=== PATIENT | male | born 1955 | race Caucasian/White ===

== ENCOUNTER 2020-03-29 09:23 | Outpatient (CLI) | payer SELFPAY | END 2020-03-29 09:24 | disposition home or self-care (01) | PROVIDERS: PCP Internal Medicine; Visit Provider Internal Medicine | DX: Z71.3 Dietary counseling and surveillance (principal) | CPT/HCPCS: 99199 ==

== ENCOUNTER 2020-04-11 12:22 | Outpatient (CLI) | payer MEDICARE, SELFPAY ==
[2020-04-12 01:18] LABS: SARS-CoV-2 RNA PCR Negative
== END 2020-04-11 12:23 | disposition home or self-care (01) ==
LOC: CHSLAB 12:27
PROVIDERS: PCP Internal Medicine; Visit Provider Internal Medicine
DX: J06.9 Acute upper respiratory infection, unspecified (principal); Z20.828 Contact with and (suspected) exposure to other viral communicable diseases
CPT/HCPCS: 87635; C9803; U0003

== ENCOUNTER 2020-06-30 09:18 | Outpatient (CLI) | payer MEDICARE, MEDICAID, SELFPAY ==
--- NOTE | ~2020-06-30 | XR_ITS ---
EXAMINATION: XR UGIAC w barium swallow DATE: 06/30/2020 10:01 INDICATION: Patient with history of esophageal cancer status post gastric pull-through procedure pres ents with history of reflux and dry heaving in the morning TECHNIQUE: The patient drank thick barium, gas-producing crystals, and thin barium. Fluoroscopy of th e esophagus, stomach, and proximal small bowel were performed. Fluoroscopy exposure time was 2.1 miguel angel angela. The DAP for this procedure was 4.105 Gycm2. COMPARISON: None. FINDINGS: There are changes of partial esophagectomy and gastric pull-through procedure. There is a m oderate amount of spontaneous reflux of gastric contents into the distal esophagus. No stricture is i dentified. The stomach and proximal small bowel show normal folding patterns. IMPRESSION: 1. Changes of gastric pull-through procedure with moderate amount of spontaneous gastroesophageal ref lux. Reviewed, dictated and finalized at location A. T MAKER LOCKSTITCH IMPRESSION: 1. Changes of gastric pull-through procedure with moderate amount of spontaneou s gastroesophageal reflux.
== END 2020-06-30 09:19 | disposition home or self-care (01) ==
PROVIDERS: PCP Internal Medicine; Visit Provider Internal Medicine
DX: R10.13 Epigastric pain (principal); R11.0 Nausea; K21.9 Gastro-esophageal reflux disease without esophagitis
CPT/HCPCS: 74246

== ENCOUNTER 2020-07-29 11:17 | Emergency (ER) | payer MEDICARE, MEDICAID, SELFPAY ==
--- NOTE | ~2020-07-29 | CT_ITS ---
EXAMINATION: CTA chest PE protocol EXAM DATE: 07/29/2020 14:03 INDICATION: Shortness of breath, positive d-dimer. Cough. Lung and esophageal cancer. TECHNIQUE: Spiral CTA of the chest (pulmonary arteries) was performed with 100 cc Omnipaque 350 intr avenous contrast injection. Images were acquired during the pulmonary arterial phase. Coronal maxi mum intensity projection 3D-reconstructions were created by the technologist on dedicated workstation . Axial, coronal and sagittal reformatted images were reviewed. The dose-length product (DLP) for t his examination was 197.64 mGy-cm. The exposure was tailored according to patient size (auto mA exp osure control), and iterative reconstruction (ASIR) was used as additional dose reduction technique. Comparison is made to prior examination from 06/17/2017. FINDINGS: The central pulmonary arteries are dilated which can indicate elevated pulmonary arterial p ressure, pulmonary arterial hypertension. Pulmonary arteries are well opacified and without intralum inal filling defects. No thoracic aortic dissection. Interval development of loss of fat planes surrounding the mid and distal esophagus and the lucero, f rom infiltrative malignancy or edema. Difficult to identify discrete lymph nodes from this. There is occlusion of the left lower lobe bronchus, with these bronchi being nearly completely opacified. This appears to be low density, could be mucus plugging with resultant postobstructive atelectasis and pn eumonia, but given the mediastinal findings, malignancy could be contributing or causing this. Interval development of nodules of soft tissue in left epicardial fat, measuring up to 1.2 cm, probab ly metastatic disease. Small to moderate chronic left pleural effusion with diffuse pleural thickening. Right apical scarrin g is unchanged. Interval development of diffuse left apical scarring. There is paraseptal emphysema. Patient is cachectic. Left adrenal mass measuring 2.3 cm, unchanged and therefore likely benign. Chol ecystectomy clips and resultant biliary dilation. Narrow cardiac silhouette from the hyperinflated alejo ngs. Moderate pericardial effusion. There are no osteoblastic or osteolytic lesions identified. IMPRESSION: 1. Dilated pulmonary arteries without filling defects. 2. Completely occluded left lower lobe bronchus with atelectasis, superimposed infection and/or canc er. 3. Diffuse ill-defined mediastinal fat planes, and development of left epicardial soft tissue nodule s suspicious for metastatic disease. 4. Development of chronic small to moderate left pleural effusion. 5. Moderate pericardial effusion. Reviewed, dictated and finalized at location B. T TINTER IMPRESSION: 1. Dilated pulmonary arteries without filling defects. 2. Completely occluded left lower lobe bronchus with atelectasis, superimposed infection and/or cancer. 3. Diffuse ill-defined mediastinal fat planes, and development of left epicard ial soft tissue nodules suspicious for metastatic disease. 4. Development of chronic small to moderate left pleural effusion. 5. Moderate pericardial effusion.
--- NOTE | ~2020-07-29 | XR_ITS ---
EXAMINATION: XR chest 2V DATE: 07/29/2020 12:15 INDICATION: Shortness of breath and cough, history of lung and esophageal cancer TECHNIQUE: Frontal and lateral views of the chest are obtained COMPARISON: CT, 06/17/2017 FINDINGS: There are large left and small right pleural effusions. Changes of gastric pull-through are noted. There are airspace opacities of the lung apices. Patchy opacities are also seen in the mid an d lower lung zones. There is moderate thoracic spondylosis. There are partially imaged changes of ant erior fusion procedure in the cervical spine. Surgical clips in the right upper quadrant are likely f rom prior cholecystectomy. IMPRESSION: 1. Large left and small right pleural effusions. 2. Diffuse airspace opacities which could reflect pneumonia and/or pulmonary edema and/or atelectasis . Reviewed, dictated and finalized at location A. ION ATTENDANT IMPRESSION: 1. Large left and small right pleural effusions. 2. Diffuse airspace opacities which could reflect pneumonia and/or pulmonary ed vesna and/or atelectasis.
[2020-07-29 11:17] VITALS: BP 135/75; PULSE 100; RESP 20; TEMP 37.6; O2SAT 96
--- NOTE | 2020-07-29 11:46 | ECG_ITS ---
Measurements Intervals [place] Rate: 92 P: 87 CO: 158 QRS: 76 QRSD: 92 T: 84 QT: 373 QTc: 462 Interpretive Statements SINUS RHYTHM BORDERLINE R WAVE PROGRESSION, ANTERIOR LEADS BORDERLINE T WAVE ABNORMALITY- HIGH LATERAL LEADS BASELINE ARTIFACT- I, II, III, AVR, AVL,A VF BORDERLINE ECG Electronically Signed On 07-29-2020 12:58:20 FIRE INVESTIGATOR by Jerry Marroquin D.O.
--- NOTE | 2020-07-29 12:14 | PC.NURSE ---
PT TAKEN TO RADIOLOGY DEPARTMENT BY WHEELCHAIR AT THIS TIME.
[2020-07-29 12:40] LABS: Basophils Absolute Auto 0.03 K/mm3 (0.00-0.10); Basophils Percent Auto 0.4 % (0.0-1.0); Eosinophils Absolute Auto 0.02 K/mm3 (0.02-0.50); Eosinophils Percent Auto 0.3 % (1.0-6.0); Hematocrit 32.1 % (37.0-46.0); Hemoglobin 10.5 g/dL (12.4-15.3); Immature Granulocyte Absolute 0.02 K/mm3 (0.00-0.00); Immature Granulocyte Percent A 0.3 % (0.0-0.0); Lymphocytes Absolute Auto 0.52 K/mm3 (1.10-4.50); Lymphocytes Percent Auto 7.5 % (18.0-42.0); Mean Corpuscular HGB Conc 32.7 g/dL (32.0-36.0); Mean Corpuscular Hemoglobin 33.3 pg (27.0-31.0); Mean Corpuscular Volume 101.9 fL (78.0-102.0); Mean Platelet Volume 8.8 fl (8.7-11.0); Monocytes Percent Auto 11.5 % (2.0-11.0); Neutrophils Absolute Auto 5.5 K/mm3 (1.7-7.2); Platelet Count Result 215 K/mm3 (150-420); Red Blood Count 3.15 M/mm3 (4.70-6.10); Red Cell Distribution Width 10.7 % (11.6-14.4); White Blood Count 6.9 K/mm3 (4.8-10.8)
[2020-07-29 12:54] LABS: BNP 55.4 pg/mL (0-100)
[2020-07-29 12:58] LABS: D Dimer 0.76 mg/L (0.19-0.50)
[2020-07-29 13:00] LABS: Alanine Aminotransferase 23 U/L (16-63); Albumin Level 2.7 g/dL (3.4-5.0); Alkaline Phosphatase 132 U/L (46-116); Anion Gap 0 mmol/L (8-16); Aspartate Amino Transferase 23 U/L (15-37); Bilirubin,Total 0.9 mg/dL (0.00-1.00); Blood Urea Nitrogen 11 mg/dL (7-18); Calcium 8.8 mg/dL (8.5-10.1); Carbon Dioxide 40 mmol/L (21-32); Chloride 94 mmol/L (98-108); Estimated CRCL calculation 72 ml/min; Estimated Glomerular Filt Rate > 60; Glucose 78 mg/dL (70-99); Osmolality Calculated 276 mOsm/kg (285-295); Phosphorus 2.7 mg/dL (2.6-4.7); Potassium 2.9 mmol/L (3.5-5.1); Sodium 134 mmol/L (136-145); Total Protein 6.9 g/dL (6.4-8.2); Troponin I 12.2 ng/L (0.00-60.4)
--- NOTE | 2020-07-29 13:17 | PC.NURSE ---
RN ENTERED ROOM 3 TO INSERT IV ACCESS FOR CT WITH CONTRAST R/O PE DUE TO ELEVATED DDIMER VERBALLY ORDERED BY ERP DR. REDMOND. PT REFUSES IV ACCESS. RN ATTEMPTED TO EDUCATE PT ON WHAT THE IV IS NEEDED FOR. PT STATES HE CAME HERE FOR OXYGEN AND OXYGEN ONLY AND HE HAS A DOCTORS APPOINTMENT ON SATURDAY. RN EXPLAINED THAT THE PATIENTS PULSE OXIMETRY WAS 96% ON ROOM AIR, PT THEN STATES THAT IT DROPPED TO 86. RN EXPLAINED THAT THE EQUIPMENT WAS NOT PROPERLY ON HIS FINGER AT THAT TIME. RN STATES SHE WILL SEND ERP DOWN TO ROOM FOR EDUCATIONAL PURPOSES.
[2020-07-29] MEDS: POTASSIUM CHLORIDE 20 MEQ TABLET 40 MEQ PO (14:29)
[2020-07-29 14:58] VITALS: RESP 15; O2SAT 96
--- NOTE | 2020-07-30 04:19 | ED.SOB ---
HPI - SOB/Dyspnea General Chief Complaint: Shortness of Breath/Dyspnea Stated Complaint: SOB Time Seen by Provider: 07/29/20 11:25 Source: patient Mode of arrival: ambulatory Limitations: no limitations History of Present Illness HPI Narrative: Patient presents saying he is short of breath and wanting a prescription for oxygen at home. He states he has been short of breath for many days, but just now decided to seek attention for it. This has been moderately severe, ongoing, and precipitated by activity. Rest has made it better. MD elicited complaint: shortness of breath Pertinent past history: COPD Onset (ago): day(s) Severity: moderate Exacerbating factors: exertion Relieving factors: rest Known history of: COPD Associated symptoms: denies other symptoms Treatment prior to arrival: none Related Data Home Medications Medication Instructions Recorded Confirmed esomeprazole magnesium 40 mg 40 mg PO DAILY 07/26/20 07/29/20 capsule,delayed release fludrocortisone 0.1 mg tablet 0.1 mg PO DAILY 07/26/20 07/29/20 glimepiride 2 mg tablet 2 mg PO QAM 07/26/20 07/29/20 methadone 10 mg tablet 10 mg PO DAILY 07/26/20 07/29/20 Allergies Allergy/AdvReac Type Severity Reaction Status Date / Time clindamycin Allergy Unknown Verified 06/09/13 09:59 Penicillins Allergy Unknown Verified 06/09/13 09:58 Review of Systems Constitutional: Constitutional: Reports no additional constitutional complaints Eyes: Eyes: Reports no additional eye complaints ENT: Reports system reviewed and no additional complaints, except as documented Cardiovascular: Cardiovascular: Reports no additional cardiovascular complaints Comments: He denies chest pain Respiratory: Respiratory: Reports no additional respiratory complaints Comments: denies cough, denies fever and chills Gastrointestinal: Gastrointestinal: Reports no additional gastrointestinal complaints Genitourinary: Genitourinary: Reports no additional male genitourinary complaints Musculoskeletal: Musculoskeletal: Reports no additional musculoskeletal complaints Integumentary/Breasts: Skin/Breast: Reports system reviewed and no additional complaints, except as docu Neurologic: Reports system reviewed and no additional complaints, except as documented Psychiatric: Psychiatric: Reports no additional psychiatric complaints Endocrine: Endocrine: Reports no additional endocrine complaints Hematologic/Lymphatic: Hematologic/Lymphatic: Reports no additional hematologic/lymphatic complaints Allergic/Immunologic: Allergic/Immunologic: Reports no additional allergic/immunologic complaints [facility] Past Medical History Medical History GERD (gastroesophageal reflux disease) Surgical History Surgical History History of cholecystectomy Family History Family History Father Family history of alcoholism Cerebrovascular accident Mother Cerebrovascular accident Family history of congestive heart failure Social History Social History Smoking status: Former smoker Tobacco type: cigarettes Alcohol intake: never Substance use: former Exam Const: General: no acute distress HENMT: Head: normal to inspection Ears: external ears normal General nose exam: Normal external nose present Mouth: Yes Normal oral and palatal mucosa present Throat: posterior oropharynx normal Eyes: Conjunctivae: conjunctivae normal Neck: Neck: normal visual inspection Chest: Chest palpation & inspection: normal inspection of the chest Resp: Effort & Inspection: normal respiratory effort Other: decreased breath sounds in right base Cardio: Rate: regular rate Rhythm: regular rhythm GI: GI Palp: Yes Soft to palpation Auscultation: normal bowel sounds Skin: General skin exam: normal color
== END 2020-07-29 14:59 | disposition left against medical advice (07) ==
PROVIDERS: Emergency Provider Emergency Medicine; PCP Internal Medicine
DX: J90 Pleural effusion, not elsewhere classified (principal); J18.8 Other pneumonia, unspecified organism; K21.9 Gastro-esophageal reflux disease without esophagitis; Z87.891 Personal history of nicotine dependence
CPT/HCPCS: 36415; 71046; 71275; 80053; 83735; 83880; 84100; 84484; 85025; 85380; 93005; 99283; 99284; A9270; Q9967

== ENCOUNTER 2020-08-06 09:19 | Outpatient (CLI) | payer MEDICARE, SELFPAY ==
[2020-08-06 10:53] LABS: SARS-CoV-2 RNA PCR Negative
== END 2020-08-06 09:20 | disposition home or self-care (01) ==
LOC: CHSLAB 09:22
PROVIDERS: PCP Internal Medicine; Visit Provider Family Medicine
DX: Z01.818 Encounter for other preprocedural examination (principal); Z20.822 Contact with and (suspected) exposure to COVID-19
CPT/HCPCS: C9803; U0003; U0005

== ENCOUNTER 2020-08-09 09:03 | Outpatient (CLI) | payer MEDICARE, MEDICAID, SELFPAY ==
--- NOTE | ~2020-08-09 | PE_ITS ---
EXAMINATION: PET skull to mid thigh DATE: 08/09/2020 10:45 INDICATION: Lung nodule. Esophageal cancer. TECHNIQUE: Blood glucose level was 103 mg/dL. 10.451 mCi of 18-fluorodeoxyglucose (18-FDG) was admini stered i.v. the patient was unable to lie flat. Attempt was made to reposition the patient with sever al pillows however the amount the patient required would not allow for entry into the gantry for imag ing and at the patient's request the study was terminated. FINDINGS/IMPRESSION: Incomplete study with no images available to be acquired following administration of the radiopharmac eutical dose due to patient's inability to maintain a position allowing for imaging. Reviewed, dictated and finalized at location A.
[2020-08-09 09:30] LABS: Glucose Point of Care 103 (65-105)
== END 2020-08-09 09:04 | disposition home or self-care (01) ==
LOC: ANHIMG 09:12
PROVIDERS: PCP Internal Medicine
DX: R91.1 Solitary pulmonary nodule (principal); C15.9 Malignant neoplasm of esophagus, unspecified; Z85.118 Personal history of other malignant neoplasm of bronchus and lung; D49.1 Neoplasm of unspecified behavior of respiratory system; Z53.29 Procedure and treatment not carried out because of patient's decision for other reasons
CPT/HCPCS: 78815; 82948; A9552